=== PATIENT | male | born 1930 | race African-American/Black ===

== ENCOUNTER → 2017-04-20 | Outpatient (CLI) | payer MEDICARE, MEDICAID ==
[~2017-04-20] MED LIST: ACET1TAB14 PO; ASPI-986 PO; ATOR10TA PO; BICA50TA2 PO; CELE200C PO; DEXL60CA3 PO; FINA5TAB11 PO; GLIP5TAB12 PO; IBUP-1636 PO; LETR2.5T3 PO
== END | disposition home or self-care (01) ==
LOC: NM 08:40
PROVIDERS: ATTEND Internal Medicine Endocrinology, Diabetes & Metabolism
DX: M88.862 Osteitis deformans of left lower leg (principal)
CPT/HCPCS: 78306; A9503

== ENCOUNTER → 2018-02-13 | Outpatient (CLI) | payer MEDICARE, MEDICAID ==
[~2018-02-13] MED LIST changes: +FEMA25 PO; -LETR2.5T3 PO
== END | disposition home or self-care (01) ==
LOC: NM 08:11
PROVIDERS: ATTEND Urology
DX: C61 Malignant neoplasm of prostate (principal); E11.9 Type 2 diabetes mellitus without complications; Z79.82 Long term (current) use of aspirin; Z79.4 Long term (current) use of insulin
CPT/HCPCS: 78306; A9503